=== PATIENT | male | born 1970 ===

== ENCOUNTER 2018-10-07 18:48 | Emergency (ER) | payer OTHER ==
[2018-10-07 19:42] LABS: Influenza A Molecular POSITIVE (Negative)
--- NOTE | 2018-10-07 19:57 | UC ---
Respiratory Complaint HPI - HPI Summary HPI Summary: 48 y/o male presents to the urgent care c/o starting two weeks ago, pt having sharp ear pain in the left ear, and had a cough and congestion. afebrile. Cough is getting better now, but his left ear still has a sharp stabbing pain. - History of Current Complaint Chief Complaint: UCEar Stated Complaint: FLU LIKE SYMP EAR PAIN Time Seen by Provider: 10/07/18 19:51 Hx Obtained From: Patient Onset/Duration: Gradual Onset Pain Intensity: 8 - Allergies/Home Medications Allergies/Adverse Reactions: Allergies Allergy/AdvReac Type Severity Reaction Status Date / Time amoxicillin Allergy Rash Verified 10/07/18 19:03 Home Medications: Home Medications Albuterol HFA INHALER* [Ventolin HFA Inhaler*] 1 puff INH Q4H PRN 10/07/18 [ History Confirmed 10/07/18] PMH/Surg Hx/FS Hx/Imm Hx - Surgical History Surgical History: Yes Surgery Procedure, Year, and Place: Artificial LEFT leg - Family History Known Family History: Positive: Hypertension - Social History Alcohol Use: Weekly Substance Use Type: Marijuana Smoking Status (MU): Never Smoked Tobacco Physical Exam - Summary Physical Exam Summary: VITAL SIGNS: Reviewed. GENERAL: Patient is a well developed and nourished male who is sitting comfortable in the examining table. Patient is not in any acute respiratory distress. HEAD AND FACE: No signs of trauma. No ecchymosis, hematomas or skull depressions. No sinus tenderness. EYES: PERRLA, EOMI x 2, No injected conjunctiva, no nystagmus. No photophobia. EARS: Hearing grossly intact. Ear canals and tympanic membranes are within normal limits. Nose: edematous and erythematous nasal mucosa w/ clear nasal discharge. MOUTH: Positive no erythema, no tonsillar enlargement. Uvula in midline. NECK: Supple, trachea is midline, Positive anterior cervical lymphadenopathy, no JVD, no carotid bruit, no c-spine tenderness, neck with full ROM. No meningeal signs, no Kernig's or brudzinskis signs. CHEST: Symmetric, no tenderness at palpation LUNGS: Clear to auscultation bilaterally. No wheezing or crackles. CVS: Regular rate and rhythm, S1 and S2 present, no murmurs or gallops appreciated. ABDOMEN: Soft, non-tender. No signs of distention. No rebound no guarding, and no masses palpated. Bowel sounds are normal. EXTREMITIES: FROM in all major joints, no edema, no cyanosis or clubbing. NEURO: Alert and oriented x 3. No acute neurological deficits. Speech is normal and follows commands. SKIN: Dry and warm Triage Information Reviewed: Yes Vital Signs: Initial Vital Signs Temp 98.9 F 10/07/18 18:57 Pulse 122 10/07/18 18:57 Resp 20 10/07/18 18:57 BP 121/84 10/07/18 18:57 Pulse Ox 93 10/07/18 18:57 Diagnostic Evaluation - Laboratory O2 Sat by Pulse Oximetry: 93 Discharge - Sign-Out/Discharge Documenting (check all that apply): Patient Departure - d/c home All imaging exams completed and their final reports reviewed: No Studies - Discharge Plan Condition: Stable Disposition: HOME Prescriptions: Oseltamivir CAP* [Tamiflu CAP*] 75 mg PO BID #10 cap Patient Education Materials: Influenza (ED) Referrals: Khoi Michael NP [Primary Care Provider] - - Billing Disposition and Condition Condition: STABLE Disposition: Home
[2018-10-07] MEDS ORDERED: predniSONE TAB* 20 MG PO ONE (20:07)
[2018-10-07] MEDS ORDERED: Albuterol/Ipratropium NEB.SOL* Albuterol 2.5 MG/Ipratropium 0.5 MG 3 ML INH ONE (20:07)
[2018-10-07] MEDS ORDERED: Oseltamivir CAP* 75 MG CAP PO ONE (20:56)
[2018-10-07] MEDS ORDERED: DOXYcycline CAP(*) 100 MG PO ONE (20:56)
[2018-10-07 21:21] VITALS: BP 135/76
== END 2018-10-07 21:21 | disposition home or self-care (01) ==
LOC: UCEAST 18:48
DX: J10.1 Influenza due to other identified influenza virus with other respiratory manifestations (principal); Z88.0 Allergy status to penicillin
CPT/HCPCS: 99213; A9270-GY; G0463; J7512